=== PATIENT | male | born 1960 | race Caucasian/White ===

== ENCOUNTER 2025-08-02 17:43 | Emergency (ER) | payer MEDICARE ==
[~2025-08-02] VITALS: Ht 182.9 cm; Wt 122.5 kg
--- NOTE | 2025-08-02 17:51 | ERN ---
ED Note History of Present Illness Stated Complaint: SEIZURES Chief Complaint: Seizure Time Seen by MD: 17:48 Dictation: Patient is a 65-year-old male here with his with complaints of feeling like he is going to have a seizure come on. He is alert and oriented x4 speech is clear. States that when he was in [place] in June he had a stroke- like episode and was seen at an emergency room there and was worked up by Neurology with no findings. He was started on Keppra due to several generalized grand mal seizures per the . He has been assigned to take Keppra a 1000 mg b.i.d. and states he is compliant. He is simply down here visiting. No local doctor neurologists. Allergies: Coded Allergies: bupropion (Unverified Allergy, Severe, 08/02/25) SEIZURE Past Medical History Past Medical History: Anxiety, Depression, Diabetes-Type II, GERD Surgical History: Other Surgical History Other: RIGHT HIP REPLACEMENT, NECK SX RN Note Reviewed/Agreed w/PFSH: Yes Review of System Dictation CONSTITUTIONAL: Negative except for HPI HEAD/FACE: Negative except for HPI EENT: Negative except for HPI RESPIRATORY: Negative except for HPI GASTROINTESTINAL/ABDOMINAL: Negative except for HPI GENITOURINARY: Negative except for HPI MUSCULOSKELETAL: Negative except for HPI INTEGUMENTARY: Negative except for HPI NEUROLOGICAL/PSYCH: Negative except for HPI feelings of having a seizure HEMATOLOGIC/LYMPHATIC: Negative except for HPI All Systems Negative, Except as noted above. 13 point review of systems assessed and all negative except for above. Initial Vital Sign VS Vital Signs Date Time Temp Pulse Resp B/P (MAP) Pulse Ox O2 Delivery O2 Flow Rate FiO2 08/02/25 17:45 97.5 97 22 136/94 97 Room Air* 0 21 Physical Exam Dictation Vital Signs reviewed General Appearance: Alert, oriented x 3, no acute distress, well developed, nourished. Patient is anxious however alert and oriented x3 speech is clear Head and Face: non-traumatic. Eyes: PERRL, pink conjunctivas, eyelid no trauma, anterior chamber with arcus senilis. Ears: Pinnas intact and no signs of trauma or erythema ear canals clear and no discharge TM no erythema Nose: No discharge, no bleeding. Oropharynx: Mouth normal, tongue pink, pharynx clear,no erythema, tonsils no exudates, no abscesses noted, mucous membrane moist Neck: Supple, non-tender, no thyromegaly, no masses, no JVD, no bruits Breast:Deferred Chest:No tenderness, no crepitus, no paradoxical movement, no retractions Lungs:Clear, well-ventilated, symmetric, no rales, no wheezing, no rhonchi, no stridor, good breath sounds bilaterally Heart: Regular rate, regular rhythm, no murmur, no gallops Vascular: no peripheral edema, Abdomen: Soft, positive bowel sounds, nondistended, no guarding, nontender, no rebound, no masses no hepatomegaly, no splenomegaly, no Curtis's sign, no hernias. Rectal: Deferred Genital: Deferred Neurological: Normal speech, motor function intact, sensory function intact NIH is 0 Musculoskeletal: Neck nontender, full range of motion, back nontender, full range of motion, Extremities: nontender, full range of motion Skin: Color pink, dry, no turgor, no rash, no lacerations, no abrasions, no contusions. Lymphatic: Deferred Results (Laboratory/Radiology) Laboratory/Radiology Laboratory Tests Test 08/02/25 17:52 White Blood Count 10.1 K/uL (4.8-10.8) Red Blood Count 4.85 MIL/uL (4.50-6.20) Hemoglobin 14.7 g/dL (14.0-18.0) Hematocrit 43.1 % (42-54) Mean Corpuscular Volume 88.9 fL (79-99) Mean Corpuscular Hemoglobin 30.3 pg (27.0-33.0) Mean Corpuscular Hemoglobin Concent 34.1 g/dL (32.0-36.0) Red Cell Distribution Width 13.2 % (11.0-15.5) Platelet Count 343 K/uL (130-400) Mean Platelet Volume 10.0 fL (7.5-10.5) Immature Granulocyte % (Auto) 0.3 % (0-1) Neutrophils (%) (Auto) 52.2 % (40.0-77.0) Lymphocytes (%) (Auto) 24.7 % (21.0-51.0) Monocytes (%) (Auto) 6.1 % (3.0-13.0) Eosinophils (%) (Auto) 15.4 % (0.0-8.0) H Basophils (%) (Auto) 1.3 % (0.0-5.0) Neutrophils # (Auto) 5.3 K/uL (1.8-7.7) Lymphocytes # (Auto) 2.5 K/uL (1.0-4.8) Monocytes # (Auto) 0.6 K/uL (0.1-1.0) Eosinophils # (Auto) 1.55 K/uL (0.00-0.70) H Basophils # (Auto) 0.13 K/uL (0.00-0.20) Absolute Immature Granulocyte (auto 0.03 K/uL (0-1) Nucleated Red Blood Cells 0.0 % (0.0-0.19) White Cell Morphology Comment See comments Sodium Level 139 mmol/L (136-145) Potassium Level 3.7 mmol/L (3.5-5.1) Chloride Level 104 mmol/L (101-111) Carbon Dioxide Level 26 mmol/L (21-32) Blood Urea Nitrogen 7 mg/dL (7-18) Creatinine 0.8 mg/dL (0.5-1.3) Glomerular Filtration Rate Calc 99 mL/min (>90) Random Glucose 89 mg/dL (70-105) Total Calcium 8.8 mg/dL (8.5-10.1) Troponin I High Sensitivity 9 ng/L (4-75) Labs Reviewed?: Yes EKG: (+) NSR EKG Comment: 1753/EKG NORMAL SINUS RHYTHM/HEART RATE 84/AXIS NORMAL/NO ECTOPY ED Course ED Course Orders Procedure Category Date Status Time Levetiracetam 500 PHA 08/02/25 Complete Mg/5 M[address] V (Keppra 5 17:47 Iv Insertion CPOE 08/02/25 Transmitted 17:47 Cbc With Differential LAB 08/02/25 Complete 17:48 Troponin I High LAB 08/02/25 Complete Sensitivity 17:48 12 Lead Ekg Tracing- EKG 08/02/25 Complete Technical 17:48 Basic Metabolic Panel LAB 08/02/25 Complete 17:48 Lorazepam 2 Mg PHA 08/02/25 Complete (Ativan) 18:00 Urinalysis Profile LAB 08/02/25 Logged 17:49 Lorazepam 2 Mg PHA 08/02/25 Complete (Ativan) 17:49 Current Medications Medications (Trade) Dose Ordered Sig/Silvino Route PRN Reason Start Time Stop Time Status Last Admin Dose Admin Levetiracetam (kepPRA 500 MG/5 ML SD VIAL) 1,000 mg ONCE STAT IV 08/02/25 17:47 08/02/25 17:59 DC 08/02/25 17:50 Lorazepam (AtiVAN) 1 mg ONCE ONCE IVP 08/02/25 18:00 08/02/25 18:01 DC 08/02/25 18:00 Lorazepam (AtiVAN) 2 mg STK-MED ONCE .ROUTE 08/02/25 17:49 08/02/25 17:50 DC Vital Signs Date Time Temp Pulse Resp B/P (MAP) Pulse Ox O2 Delivery O2 Flow Rate FiO2 08/02/25 17:45 97.5 97 22 136/94 97 Room Air* 0 21 1915/PATIENT FEELS MARKEDLY IMPROVED AFTER KEPPRA LOAD AND ATIVAN. NOW STATES HE PROBABLY MISSED TWO DOSES OF KEPPRA WHILE HE WAS DRIVING DOWN TO [place]. I STRONGLY ADVISED HER AND PATIENT TO REMAIN COMPLIANT WITH THE MEDICATIONS ALSO ADVISED HIM TO GO BACK TO [place] TO SEE THEIR DOCTOR AND FOLLOW UP NEUROLOGICALLY IN THE NEXT SEVERAL DAYS NIH IS 0 NO SEIZURES IN TRIAGE EMERGENCY ROOM HEART Score Response (Comments) Value History: Low suspicion (0) 0 Age: 45-65yrs (+1) 1 Risk Factors: 1-2 risk factors (+1) 1 Initial Troponin: Normal limit (0) 0 Total 2 Medical Decision Making MDM MEDICAL DISCHARGE MAKING BASED ON BASIC LABS AND EKG DUE TO A POSSIBLE SEIZURE IMPENDING NO SEIZURES IN THE EMERGENCY ROOM PATIENT HAD TWO DOSES OF MS. GOODRICH A 1000 MG WHILE TRAVELING TO [place], THESE WERE REPLACED IN THE EMERGENCY ROOM. PATIENT WAS DISCHARGED HOME TO FOLLOW UP WITH HIS DOCTOR AND ADVISED TO GO BACK TO [place] SOON POSSIBLE ALL QUESTIONS AND DX & DISP Disposition: Discharge Departure Impression: Primary Impression: Seizure disorder Condition: Stable Additional Instructions: FOLLOW-UP WITH PRIMARY CARE PROVIDER IN 1 TO 2 DAYS. TAKE MEDICATIONS DIRECTED HERE IN THE EMERGENCY ROOM. OKAY TO CONTINUE HOME MEDICATIONS UNLESS OTHERWISE DISCUSSED DURING YOUR VISIT IN THE EMERGENCY ROOM TODAY. RETURN TO YOUR NEAREST EMERGENCY ROOM IF SYMPTOMS WORSEN OR IF THERE IS NO IMPROVEMENT. CALL 911 IF YOU NEED IMMEDIATE ASSISTANCE. TAKE TYLENOL OR MOTRIN [id number] NEEDED AND IF NO CONTRAINDICATIONS ARE PRESENT. INCREASE ORAL HYDRATION. A WOUND CULTURE OR URINE CULTURE WAS ORDERED HERE IN THE EMERGENCY ROOM DEPARTMENT PLEASE FOLLOW-UP WITH PRIMARY CARE PROVIDER AND ADVISE THEM TO GET REPEAT PORTS FROM OUR FACILITY. IF YOU HAD ANY KAMLESH WRAP/SPLINTS THAT WERE APPLIED HERE, PLEASE DO NOT REMOVE THEM UNTIL YOU SEE YOUR PRIMARY CARE OR SPECIALTY. CONTINUE KEPPRA AND ALL YOUR MEDICATIONS FROM YOUR PRIMARY CARE DOCTOR IN [place]. STRONGLY SUGGEST RETURNING BACK HOME TO FOLLOW UP WITH THE YOUR NEUROLOGISTS AND YOUR PRIMARY CARE DOCTOR. NO DRIVING UNTIL CLEARED BY YOUR NEUROLOGIST. Time of Disposition: 19:18 I have reviewed the case, and I agree with, Diagnosis and Plan VINCENT PADILLA GUEST RELATIONS EXECUTIVE Aug 02, 2025 17:51
--- NOTE | 2025-08-02 17:56 | EKG ---
[facility] Test Date: 2025-08-02 Test Time: 17:53:50 Pat Name: YAYA PALAFOX Department: ED Room: Gender: M [place] Operator: [id number] : 1960 Requested By: VINCENT PADILLA Order Number: [id number] Reading MD: Emelina Salgado Measurements Intervals [place] Rate: 84 P: 41 NV: 168 QRS: 27 QRSD: 99 T: 55 QT: 378 QTc: 448 Interpretive Statements Sinus rhythm No previous ECG available for comparison Electronically Signed On 08-03-2025 09:04:25 [employer] by Emelina Salgado Please click the below link to view image of tracing.
[2025-08-02 18:10] LABS: IMMATURE GRANULOCYTE ABSOLUTE 0.03 K/uL (0-1); NUCLEATED RED BLOOD CELLS 0.0 % (0.0-0.19); PLATELET COUNT (AUTO) 343 K/uL (130-400); RED BLOOD CELL COUNT(AUTO) 4.85 MIL/uL (4.50-6.20); RED CELL DISTRIBUTION WIDTH 13.2 % (11.0-15.5); WHITE BLOOD COUNT (AUTO) 10.1 K/uL (4.8-10.8)
[2025-08-02 18:20] LABS: CREATININE 0.8 mg/dL (0.5-1.3); GLOMERULAR FILTR. RATE CALC 99.0 mL/min (>90); GLUCOSE,RANDOM 89.0 mg/dL (70-105); SODIUM SERUM 139.0 mmol/L (136-145); UREA NITROGEN, BLOOD 7.0 mg/dL (7-18)
[2025-08-02 19:45] VITALS: BP 125/81; PULSE 87; RESP 18; TEMP 97.5; O2SAT 99
== END 2025-08-02 19:49 | disposition home or self-care (01) ==
LOC: EDH 17:43
DX: G40.909 Epilepsy, unspecified, not intractable, without status epilepticus (principal); F41.9 Anxiety disorder, unspecified; E11.9 Type 2 diabetes mellitus without complications; K21.9 Gastro-esophageal reflux disease without esophagitis; F32.A Depression, unspecified; Z88.8 Allergy status to other drugs, medicaments and biological substances; Z96.641 Presence of right artificial hip joint
CPT/HCPCS: 99284; 96374; 96375; 84484; 80048; 85025; 36415; 93005; J2060